=== PATIENT | male | born 1980 | race Caucasian/White ===

== ENCOUNTER 2022-03-06 20:18 | Emergency (ER) | payer OTHER, SELFPAY ==
--- NOTE | ~2022-03-06 | XR_ITS ---
Left Hand Technique: PA, oblique, and lateral views were obtained. Clinical History: Laceration, foreign body Findings: No acute fracture or dislocation is seen. Osseous alignment is anatomic. Joint spaces are p reserved. Soft tissues are unremarkable. Impression: Unremarkable left hand. No radiopaque foreign body seen. Reviewed, dictated and finalized at [facility]. REMOVER Impression: Unremarkable left hand. No radiopaque foreign body seen.
[2022-03-06 20:22] VITALS: BP 136/88; PULSE 74; RESP 16; TEMP 36.6; O2SAT 98
--- NOTE | 2022-03-06 22:06 | ED.WOUNDLAC ---
HPI - Wound/Laceration General Chief Complaint: Wound/Laceration Stated Complaint: laceration Time Seen by Provider: 03/06/22 22:00 Source: patient Mode of arrival: ambulatory Limitations: no limitations History of Present Illness HPI narrative: Patient is a 41-year-old male who presents to the ED with report of a laceration to his left thenar eminence. Patient reports he was opening a package with a pocket knife when he accidentally cut the base of his left thumb. Bleeding controlled by the time of my evaluation. No numbness, tingling. No other injuries. Tetanus status unknown. Related Data Allergies Allergy/AdvReac Type Severity Reaction Status Date / Time Penicillins Allergy Unknown Verified 03/06/22 20:21 Review of Systems Review of Systems: CONSTITUTIONAL: Denies fever, chills, or sweats. SKIN: See HPI. NEUROLOGIC: Denies tingling, numbness, or weakness. All systems reviewed & are unremarkable except as noted in HPI and below PMFSH Past Medical History Medical History (Updated 03/06/22 @ 22:46 by Nyla Natarajan PA-C) No pertinent past medical history Surgical History Surgical History (Updated 03/06/22 @ 22:06 by Nyla Natarajan PA-C) No pertinent past surgical history Social History Social History (Updated 03/06/22 @ 22:06 by Nyla Natarajan PA-C) Smoking status: Never smoker Exam Narrative: GENERAL: Well appearing, obese, non-toxic, in no acute distress. HEAD: Normocephalic, atraumatic. NECK: Supple. No adenopathy, no masses. RESPIRATORY: Airway patent, respirations nonlabored. CARDIOVASCULAR: Regular rate and rhythm without murmurs, rubs, or gallops. Radial pulses 2+ and equal bilaterally. MUSCULOSKELETAL: Moves all extremities. Strength/ROM intact without gross deformities. SKIN: Warm, dry, normal color. No rashes. Approximately 2 cm relatively superficial laceration to left first metacarpal, over thenar eminence, no active bleeding. NEURO: A&O X3. Speech clear. Cranial nerves II-XII grossly intact. Steady gait. No ataxic movements. PSYCHIATRIC: Appropriate mood and affect. Normal interaction. Course Vital Signs Vital signs: Vital Signs Temperature 97.8 F 03/06/22 20:22 Pulse Rate 74 03/06/22 20:22 Respiratory Rate 16 03/06/22 20:22 Blood Pressure 136/88 03/06/22 20:22 Pulse Oximetry 98 03/06/22 20:22 Oxygen Delivery Room Air 03/06/22 20:22 Temperature 97.8 F 03/06/22 20:22 Pulse Rate 80 03/06/22 22:58 Respiratory Rate 16 03/06/22 22:58 Blood Pressure 136/88 03/06/22 20:22 Pulse Oximetry 100 03/06/22 22:58 Oxygen Delivery Room Air 03/06/22 20:22 Procedures Laceration Laceration 1: Date: 03/06/22 Time: 22:30 Site: hand Side (If applicable): left Size (cm): 2 Description: linear Depth: simple, single layer Local Anesthetic: lidocaine 1% Amount of anesthesia used (mL): 3 Pre-repair: wound explored and irrigated ====== Skin Level ====== Skin layer closed with: nylon Size (cm): 4-0 Number of sutures: 3 Technique: simple, interrupted ====== Subcutaneous Layer ====== ====== Muscle Layer ====== ====== Tendon Layer ====== MDM - Wound/Laceration MDM Narrative Medical decision making narrative: Laceration to left thenar eminence, uncomplicated. X-ray interpreted by myself without acute osseous abnormality, no foreign body seen. Laceration repaired without complications. Tetanus status updated. Patient given wound care instructions and reasons to return. Medical Records Attestation: I reviewed the patient's medical records. Imaging Data Attestation: I personally reviewed and interpreted this imaging study as follows: My impression: XR L hand: No acute osseous abnormality. No radiopaque FB. Discharge Plan Discharge Clinical Impression: Laceration of left palm without complication Qualifiers: Encou
[2022-03-06] MEDS: TETANUS,DIPHTHERIA,AC PERTUSSIS ADULT (0.5 ML) BOOSTRIX IM (22:53)
[2022-03-06 22:58] VITALS: PULSE 80; RESP 16; O2SAT 100
[2022-03-06] MEDS: LIDOCAINE HCL 1% PF 30 ML VIAL 5 ML INFILTRATE (22:58)
== END 2022-03-06 22:59 | disposition home or self-care (01) ==
PROVIDERS: Emergency Provider Physician Assistant; PCP Family Medicine
DX: S61.412A Laceration without foreign body of left hand, initial encounter (principal); W26.0XXA Contact with knife, initial encounter; Z23 Encounter for immunization
CPT/HCPCS: 12001; 73130; 90471; 90715; 99283